=== PATIENT | female | born 1960 | race Caucasian/White ===

== ENCOUNTER 2017-08-22 17:29 | Emergency (ER) | payer OTHER ==
[~2017-08-22] VITALS: Ht 167.6 cm; Wt 65.0 kg
[~2017-08-22 17:29] MED LIST: IBUP-232 PO
[2017-08-22 17:30] VITALS: BP 130/65; PULSE 71; RESP 16; TEMP 98.9; O2SAT 98
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
== END 2017-08-22 21:14 | disposition home or self-care (01) ==
LOC: NEPE 17:29
DX: T85.49XA Other mechanical complication of breast prosthesis and implant, initial encounter (principal); M32.9 Systemic lupus erythematosus, unspecified; J44.9 Chronic obstructive pulmonary disease, unspecified; F41.9 Anxiety disorder, unspecified; E78.00 Pure hypercholesterolemia, unspecified; R56.9 Unspecified convulsions; N19 Unspecified kidney failure; Z88.2 Allergy status to sulfonamides; Z88.8 Allergy status to other drugs, medicaments and biological substances
CPT/HCPCS: 99281

== ENCOUNTER 2017-09-24 22:13 | Emergency (ER) | payer OTHER ==
[~2017-09-24] VITALS: Ht 167.6 cm; Wt 75.0 kg
[2017-09-24 22:14] VITALS: PULSE 82; RESP 22; TEMP 98.2; O2SAT 98
[2017-09-24 22:33] VITALS: BP 133/70; PULSE 99; RESP 18; O2SAT 96
[2017-09-24] MEDS ORDERED: AMOX875T2 PO (22:47)
[2017-09-24] MEDS ORDERED: CITA10TA4 PO (22:47)
[2017-09-24] MEDS ORDERED: GABA300C5 PO (22:47)
[2017-09-24] MEDS ORDERED: OMEP20TA93 PO (22:47)
[2017-09-24] MEDS ORDERED: LITH300T3 PO (22:47)
[2017-09-24] MEDS ORDERED: OLAN15TA PO (22:47)
[2017-09-24] MEDS ORDERED: BUSP10TA PO (22:47)
[2017-09-24] MEDS ORDERED: TRAZ50TA12 PO (22:47)
[2017-09-24 23:13] LABS: AUTOMATED NEUTROPHIL # 4.4 TH/MM3 (1.8-7.7); BASOPHIL # 0.1 TH/MM3 (0-0.2); BASOPHIL % 1.2 % (0.0-2.0); EOSINOPHIL # 0.2 TH/MM3 (0-0.4); EOSINOPHIL % 1.7 % (0.0-4.0); HEMATOCRIT 39.6 % (35.0-46.0); HEMOGLOBIN 13.4 GM/DL (11.6-15.3); LYMPH % 40.2 % (9.0-44.0); LYMPHOCYTE # 3.7 TH/MM3 (1.0-4.8); MEAN CORPUSCULAR HEMOGLOBIN 35.2 PG (27.0-34.0); MEAN CORPUSCULAR HGB CONC 33.9 % (32.0-36.0); MEAN PLATELET VOLUME 8.5 FL (7.0-11.0); MONO % 8.3 % (0.0-8.0); MONOCYTE # 0.8 TH/MM3 (0-0.9); NEUT % 48.6 % (16.0-70.0); PLATELET COUNT 175 TH/MM3 (150-450); RED BLOOD COUNT 3.81 MIL/MM3 (4.00-5.30); RED CELL DISTRIBUTION WIDTH 14.6 % (11.6-17.2); WHITE BLOOD COUNT 9.1 TH/MM3 (4.0-11.0)
--- NOTE | 2017-09-24 23:21 | PD ---
HPI Chief Complaint: Respiratory Symptoms Time Seen by Provider: 22:37 Travel History International Travel<30 days: No Contact w/Intl Traveler<30days: No Traveled to known affect area: No History of Present Illness HPI 56 old woman presents emergent heart complaining worsening shortness of breath with cough congestion symptoms ongoing for the past week. Straight tobacco use , trying to quit, last smoked today, treated with antibiotic steroids and bronchodilators without significant improvement. She is also treated for shortness of breath symptoms value with Valium, but she states she is currently out. No fevers. No other complaints. History Past Medical History Menopausal: Yes : 7 Para: 1 Social History Alcohol Use: No Tobacco Use: Yes Allergies-Medications (Allergen,Severity, Reaction): Coded Allergies: sulfamethoxazole (Unverified Allergy, Severe, Anaphylaxis, 09/24/17) trimethoprim (Unverified Allergy, Severe, Anaphylaxis, 09/24/17) Reported Meds & Prescriptions Reported Meds & Active Scripts Active Reported Gabapentin 300 Mg Cap 300 Mg PO BID Trazodone (Trazodone HCl) 50 Mg Tab 50 Mg PO HS Buspirone (Buspirone HCl) 10 Mg Tab 10 Mg PO DAILY [place] Carbonate 300 Mg Tab 300 Mg PO BID Omeprazole 20 Mg Tab 20 Mg PO DAILY Citalopram (Citalopram Hydrobromide) 10 Mg Tab 10 Mg PO DAILY Olanzapine 15 Mg Tab 15 Mg PO HS Amoxicillin-Clavulanate 875-125 mg Tab 875 Mg PO BID not for use in CrCl <30 mL/minute Review of Systems Except as stated in HPI: all other systems reviewed are Neg Physical Exam Narrative GENERAL: Well-appearing 56 year-old woman, no acute distress. SKIN: Focused skin assessment warm/dry. EYES: Pupils equal and round. No scleral icterus. No injection or drainage. ENT: No nasal bleeding or discharge. Mucous membranes pink and moist. TMs normal. Throat is normal. NECK: Trachea midline. Slight anterior cervical adenopathy. CARDIOVASCULAR: Regular rate and rhythm. No murmur appreciated. RESPIRATORY: No accessory muscle use. Clear to auscultation. Breath sounds equal bilaterally. GASTROINTESTINAL: Abdomen soft, non-tender, nondistended. Hepatic and splenic margins not palpable. MUSCULOSKELETAL: No obvious deformities. No edema. NEUROLOGICAL: Awake and alert. No obvious cranial nerve deficits. Motor grossly within normal limits. Normal speech. Data Data Last Documented VS Vital Signs Date Time Temp Pulse Resp B/P (MAP) Pulse Ox O2 Delivery O2 Flow Rate FiO2 09/24/17 22:33 99 18 133/70 (91) 96 Room Air 09/24/17 22:14 98.2 Orders Orders Chest, Pa & Lat (09/24/17 ) Complete Blood Count With Diff (09/24/17 22:58) Comprehensive Metabolic Panel (09/24/17 22:58) D-Dimer (09/24/17 22:58) Labs Laboratory Tests Test 09/24/17 23:05 White Blood Count 9.1 TH/MM3 Red Blood Count 3.81 MIL/MM3 Hemoglobin 13.4 GM/DL Hematocrit 39.6 % Mean Corpuscular Volume 104.0 FL Mean Corpuscular Hemoglobin 35.2 PG Mean Corpuscular Hemoglobin Concent 33.9 % Red Cell Distribution Width 14.6 % Platelet Count 175 TH/MM3 Mean Platelet Volume 8.5 FL Neutrophils (%) (Auto) 48.6 % Lymphocytes (%) (Auto) 40.2 % Monocytes (%) (Auto) 8.3 % Eosinophils (%) (Auto) 1.7 % Basophils (%) (Auto) 1.2 % Neutrophils # (Auto) 4.4 TH/MM3 Lymphocytes # (Auto) 3.7 TH/MM3 Monocytes # (Auto) 0.8 TH/MM3 Eosinophils # (Auto) 0.2 TH/MM3 Basophils # (Auto) 0.1 TH/MM3 CBC Comment DIFF FINAL Differential Comment D-Dimer Quantitative (PE/DVT) 0.27 MG/L FEU Blood Urea Nitrogen 20 MG/DL Creatinine 0.86 MG/DL Random Glucose 105 MG/DL Total Protein 7.2 GM/DL Albumin 3.0 GM/DL Calcium Level 8.6 MG/DL Alkaline Phosphatase 93 U/L Aspartate Amino Transf (AST/SGOT) 45 U/L Alanine Aminotransferase (ALT/SGPT) 63 U/L Total Bilirubin 0.3 MG/DL Sodium Level 140 MEQ/L Potassium Level 3.9 MEQ/L Chloride Level 106 MEQ/L Carbon Dioxide Level 25.4 MEQ/L Anion Gap 9 MEQ/L Estimat Glomerular Filtration Rate 69 ML/MIN MDM Medical Decision Making Medical Screen Exam Complete: Yes Emergency Medical Condition: Yes Interpretation(s) CBC unremarkable. D-dimer negative Chemistries mildly elevated AST and ALT. Chest x-ray negative. Differential Diagnosis Bronchitis, viral syndrome, URI, PE, anxiety, other Narrative Course Medical decision making INITIAL 56 old woman presents emergent department complaining of shortness of breath symptoms. She looks well. My impression is is probably URI symptoms and anxiety together. I don't hear much wheezing. Pulmonary exam is otherwise unremarkable. She is no significant edema in her legs. We'll check x-ray, basic labs, d-dimer. Diagnosis Primary Impression: URI (upper respiratory infection) Additional Instructions: Follow-up with your primary doctor in the next 2-4 days. Return to the emergency department for any new or worsening symptoms. Med/Other Pt SpecificInfo: No Change to Meds Disposition: 01 DISCHARGE HOME Condition: Stable Khoi Acharya MD Sep 24, 2017 23:21
--- NOTE | 2017-09-24 23:23 | RADRPT ---
EXAM DATE/TIME: 09/24/2017 23:09 [facility] COMPARISON: CHEST PA & LAT, March 20, 2010, 18:04. INDICATIONS : Shortness of breath for several weeks. MEDICAL HISTORY : None. SURGICAL HISTORY : None. ENCOUNTER: Initial ACUITY: 1 month PAIN SCORE: 0/10 LOCATION: Bilateral chest FINDINGS: The lungs are clear without infiltrate, nodule, or mass. There is no appreciable pleural effusion fo r technique. Heart and mediastinum are unremarkable. CONCLUSION: No acute cardiopulmonary disease. Rodrigo Jimenez MD on September 24, 2017 at 23:22 Board Certified Radiologist. This report was verified electronically.
[2017-09-24 23:27] LABS: ALT (GPT) 63 U/L (10-53)
[2017-09-24 23:30] LABS: ALKALINE PHOSPHATASE 93 U/L (45-117); TOTAL BILIRUBIN ADULT 0.3 MG/DL (0.2-1.0); TOTAL PROTEIN 7.2 GM/DL (6.4-8.2)
[2017-09-24 23:34] LABS: AST (GOT) 45 U/L (15-37); BICARBONATE 25.4 MEQ/L (21.0-32.0); BLOOD UREA NITROGEN 20 MG/DL (7-18); CALCIUM 8.6 MG/DL (8.5-10.1); CHLORIDE 106 MEQ/L (98-107); CREATININE 0.86 MG/DL (0.50-1.00); GLOMERULAR FILTRATION RATE 69 ML/MIN (>89); GLUCOSE,RANDOM 105 MG/DL (74-106); SODIUM (NA) 140 MEQ/L (136-145)
== END 2017-09-25 00:04 | disposition home or self-care (01) ==
LOC: NEPE 22:13
DX: J06.9 Acute upper respiratory infection, unspecified (principal); Z72.0 Tobacco use
CPT/HCPCS: 71020; 80053; 85025; 85379; 99284

== ENCOUNTER 2017-09-27 14:44 | Emergency (ER) | payer OTHER ==
[~2017-09-27 14:44] MED LIST changes: +AMOX875T2 PO; +BUSP10TA PO; +CITA10TA4 PO; +GABA300C5 PO; -IBUP-232 PO; +LITH300T3 PO; +OLAN15TA PO; +OMEP20TA93 PO; +TRAZ50TA12 PO
[2017-09-27 14:45] VITALS: BP 142/75; PULSE 91; RESP 28; TEMP 98.2; O2SAT 97
[2017-09-27] MEDS ORDERED: RESP: ALBUTEROL 2.5 MG/3 ML NEB (SCH) INH (15:45)
[2017-09-27] MEDS ORDERED: RESP: ALBUTEROL 2.5 MG/IPRATROPIUM 0.5 MG NEB (SCH) INH ONE (15:45)
[2017-09-27] MEDS ORDERED: SODIUM CHLORIDE 0.9% FLUSH 10 ML FLUSH IVF PRN (15:45)
--- NOTE | 2017-09-27 16:06 | RADRPT ---
EXAM DATE/TIME: 09/27/2017 15:53 [facility] COMPARISON: CHEST PA & LAT, September 24, 2017, 23:09. INDICATIONS : Short of breath. MEDICAL HISTORY : None. SURGICAL HISTORY : None. ENCOUNTER: Initial ACUITY: 1 day PAIN SCORE: 0/10 LOCATION: Bilateral chest FINDINGS: A single view of the chest demonstrates the lungs to be symmetrically aerated without evidence of mas s, infiltrate or effusion. The cardiomediastinal contours are unremarkable. Osseous structures are intact. CONCLUSION: No acute disease. Mckinley Alarcon MD on September 27, 2017 at 16:03 Board Certified Radiologist. This report was verified electronically.
[2017-09-27] MEDS ORDERED: ALPR0.5T3 PO (16:10)
[2017-09-27 16:14] VITALS: RESP 20; O2SAT 97
--- NOTE | 2017-09-27 16:27 | PD ---
HPI Chief Complaint: Respiratory Symptoms Time Seen by Provider: 15:45 Travel History International Travel<30 days: No Contact w/Intl Traveler<30days: No Traveled to known affect area: No History of Present Illness HPI This is a 56-year-old female with history of COPD, who presents today with complaints of wheezing and shortness of breath. The patient states she was recently put on a low dose steroid taper however the wheezing has continued. She denies any fevers, chills. Denies any productive cough. She reports dyspnea on exertion. There is no chest pain or chest pressure that time my examination. There are no other complaints at the time of my examination. 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 ) Headaches: Yes Hepatitis: No Hiatal Hernia: No Heparin Induced Thrombocytopen: No Immune Disorder: Yes (LUPUS) Inguinal Hernia: Yes Kidney Stones: No Musculoskeletal: Yes (LUPUS;) Neurologic: No Psychiatric: No Reproductive: No Respiratory: Yes Immunizations Current: No Migraines: Yes Myocardial Infarction: No Renal Failure: Yes Seizures: Yes Sickle Cell Disease: No Sleep Apnea: No Thyroid Disease: No Ulcer: No Tetanus Vaccination: > 5 Years Influenza Vaccination: No ?: Not Menopausal: Yes : 7 Para: 1 Miscarriage: 6 : 0 Ectopic : Yes (X 6) Ovarian Cysts: Yes (OVARIES REMOVED) Tubal Ligation: Yes Past Surgical History Abdominal Surgery: Yes (LT INGUINAL HERNIA 1980) AICD: No Body Medical Devices: BLOOD CLOTS, AND LUPUS Cardiac Surgery: No Cholecystectomy: Yes Coronary Artery Bypass Graft: No Ear Surgery: No Endocrine Surgery: Yes (LEFT KIDNEY) Eye Surgery: No Genitourinary Surgery: No Gynecologic Surgery: Yes (OOPHORECTOMY) Hysterectomy: Yes Insulin Pump: Yes Neurologic Surgery: No Oral Surgery: No Pacemaker: No Thoracic Surgery: No Other Surgery: Yes (PT REFUSES TO DISCLOSE SX HX.) Social History Alcohol Use: No Tobacco Use: Yes Substance Use: Yes (PAST HX OF NARCOTIC DRUG ABUSE) Allergies-Medications (Allergen,Severity, Reaction): Coded Allergies: sulfamethoxazole (Unverified Allergy, Severe, Anaphylaxis, 09/27/17) trimethoprim (Unverified Allergy, Severe, Anaphylaxis, 09/27/17) Reported Meds & Prescriptions Reported Meds & Active Scripts Active Reported Alprazolam 0.5 Mg Tab 0.5 Mg PO BID PRN Gabapentin 300 Mg Cap 300 Mg PO BID Trazodone (Trazodone HCl) 50 Mg Tab 50 Mg PO HS Buspirone (Buspirone HCl) 10 Mg Tab 10 Mg PO DAILY [place] Carbonate 300 Mg Tab 300 Mg PO BID Omeprazole 20 Mg Tab 20 Mg PO DAILY Citalopram (Citalopram Hydrobromide) 10 Mg Tab 10 Mg PO DAILY Olanzapine 15 Mg Tab 15 Mg PO HS Review of Systems Except as stated in HPI: all other systems reviewed are Neg General / Constitutional: No: Fever, Chills HENT: No: Headaches, Neck Pain Cardiovascular: No: Chest Pain or Discomfort, Palpitations Respiratory: Positive: Cough (nonproductive), Shortness of Breath, Wheezing Gastrointestinal: No: Nausea, Vomiting, Abdominal Pain Genitourinary: No: Frequency, Dysuria Musculoskeletal: No: Weakness, Pain Neurologic: No: Weakness, Dizziness, Headache Physical Exam Narrative GENERAL: Developed well-nourished female in no acute respiratory distress. SKIN: Focused skin assessment warm/dry. HEAD: Atraumatic. Normocephalic. EYES: Pupils equal and round. No scleral icterus. No injection or drainage. ENT: No nasal bleeding or discharge. Mucous membranes pink and moist. NECK: Trachea midline. Supple. CARDIOVASCULAR: Regular rate and rhythm. No murmur appreciated. RESPIRATORY: Diffuse expiratory wheezes. No Rales appreciated. GASTROINTESTINAL: Abdomen soft, non-tender, nondistended. Hepatic and splenic margins not palpable. MUSCULOSKELETAL: No obvious deformities. No clubbing. No cyanosis. No edema. NEUROLOGICAL: Awake and alert. No obvious cranial nerve deficits. Motor grossly within normal limits. Normal speech. Data Data Last Documented VS Vital Signs Date Time Temp Pulse Resp B/P (MAP) Pulse Ox O2 Delivery O2 Flow Rate FiO2 09/27/17 17:39 90 25 125/92 (103) 96 Room Air 09/27/17 14:45 98.2 Orders Orders Basic Metabolic Panel (Bmp) (09/27/17 15:45) B-Type Natriuretic Peptide (09/27/17 15:45) Ckmb (Isoenzyme) Profile (09/27/17 15:45) Complete Blood Count With Diff (09/27/17 15:45) Magnesium (Mg) (09/27/17 15:45) Prothrombin Time / Inr (Pt) (09/27/17 15:45) Act Partial Throm Time (Ptt) (09/27/17 15:45) Troponin I (09/27/17 15:45) Chest, Single Ap (09/27/17 15:45) Ecg Monitoring (09/27/17 15:45) Bilateral Bp Monitoring (09/27/17 15:45) Iv Access Insert/Monitor (09/27/17 15:45) Oximetry (09/27/17 15:45) Oxygen Administration (09/27/17 15:45) Sodium Chloride 0.9% Flush (Ns Flush) (09/27/17 15:45) Albuterol-Ipratropium Neb (Duoneb Neb) (09/27/17 15:45) Albuterol Neb (Albuterol Neb) (09/27/17 15:45) Arterial Blood Gas (Abg) (09/27/17 15:45) Electrocardiogram (09/27/17 15:08) Labs Laboratory Tests Test 09/27/17 16:00 White Blood Count 7.9 TH/MM3 Red Blood Count 4.07 MIL/MM3 Hemoglobin 14.2 GM/DL Hematocrit 42.6 % Mean Corpuscular Volume 104.6 FL Mean Corpuscular Hemoglobin 34.8 PG Mean Corpuscular Hemoglobin Concent 33.3 % Red Cell Distribution Width 14.4 % Platelet Count 180 TH/MM3 Mean Platelet Volume 8.6 FL Neutrophils (%) (Auto) 59.6 % Lymphocytes (%) (Auto) 30.1 % Monocytes (%) (Auto) 8.1 % Eosinophils (%) (Auto) 1.4 % Basophils (%) (Auto) 0.8 % Neutrophils # (Auto) 4.7 TH/MM3 Lymphocytes # (Auto) 2.4 TH/MM3 Monocytes # (Auto) 0.6 TH/MM3 Eosinophils # (Auto) 0.1 TH/MM3 Basophils # (Auto) 0.1 TH/MM3 CBC Comment DIFF FINAL Differential Comment Prothrombin Time 10.5 SEC Prothromb Time International Ratio 1.0 RATIO Activated Partial Thromboplast Time 25.7 SEC Blood Urea Nitrogen 15 MG/DL Creatinine 0.77 MG/DL Random Glucose 86 MG/DL Calcium Level 8.7 MG/DL Magnesium Level 2.0 MG/DL Sodium Level 145 MEQ/L Potassium Level 4.2 MEQ/L Chloride Level 111 MEQ/L Carbon Dioxide Level 28.4 MEQ/L Anion Gap 6 MEQ/L Estimat Glomerular Filtration Rate 78 ML/MIN Total Creatine Kinase 73 U/L Troponin I LESS THAN 0.02 NG/ML B-Type Natriuretic Peptide 19 PG/ML MDM Medical Decision Making Medical Screen Exam Complete: Yes Emergency Medical Condition: Yes Differential Diagnosis COPD exacerbation versus pneumonia versus bronchitis versus pulmonary embolus Narrative Course 86-year-old female history of reactive airway disease/COPD, presents here with shortness of breath. Patient had been treated previously with steroids however states that they only last a short period time and she is now short of breath again. She denies any chest pain, chest pressure. She's been given nebulizer treatments and had a blood gas done. We are awaiting laboratory tests. The patient has decided to sign out AGAINST MEDICAL ADVICE before workup was completed. She is made aware of the risks of leaving before workup complete. She understands this and stated that she did not want to wait any longer. She was told she can come back any time. She's also instructed to stop smoking. AMA: The risks of leaving against medical advice without further evaluation treatment were discussed with the patient. These risks include cardiac dysfunction, cardiac dysrhythmia, possible heart attack, possible stroke or . The patient indicated understanding of these risks and appeared to have the capacity to make this decision. Diagnosis Primary Impression: Shortness of breath Additional Impression: History of COPD Disposition: AGAINST MEDICAL ADVICE Condition: Stable Giancarlo Marti MD Sep 27, 2017 16:27
[2017-09-27 16:29] LABS: AUTOMATED NEUTROPHIL # 4.7 TH/MM3 (1.8-7.7); BASOPHIL # 0.1 TH/MM3 (0-0.2); BASOPHIL % 0.8 % (0.0-2.0); EOSINOPHIL # 0.1 TH/MM3 (0-0.4); EOSINOPHIL % 1.4 % (0.0-4.0); HEMATOCRIT 42.6 % (35.0-46.0); HEMOGLOBIN 14.2 GM/DL (11.6-15.3); LYMPH % 30.1 % (9.0-44.0); LYMPHOCYTE # 2.4 TH/MM3 (1.0-4.8); MEAN CELL VOLUME 104.6 FL (80.0-100.0); MEAN CORPUSCULAR HEMOGLOBIN 34.8 PG (27.0-34.0); MEAN CORPUSCULAR HGB CONC 33.3 % (32.0-36.0); MEAN PLATELET VOLUME 8.6 FL (7.0-11.0); MONO % 8.1 % (0.0-8.0); MONOCYTE # 0.6 TH/MM3 (0-0.9); NEUT % 59.6 % (16.0-70.0); PLATELET COUNT 180 TH/MM3 (150-450); RED BLOOD COUNT 4.07 MIL/MM3 (4.00-5.30); RED CELL DISTRIBUTION WIDTH 14.4 % (11.6-17.2); WHITE BLOOD COUNT 7.9 TH/MM3 (4.0-11.0)
[2017-09-27 16:50] LABS: PROTHROMBIN TIME - PATIENT 10.5 SEC (9.8-11.6)
[2017-09-27 16:52] LABS: BICARBONATE 28.4 MEQ/L (21.0-32.0); BLOOD UREA NITROGEN 15 MG/DL (7-18); CALCIUM 8.7 MG/DL (8.5-10.1); CHLORIDE 111 MEQ/L (98-107); CREATININE 0.77 MG/DL (0.50-1.00); GLOMERULAR FILTRATION RATE 78 ML/MIN (>89); GLUCOSE,RANDOM 86 MG/DL (74-106); SODIUM (NA) 145 MEQ/L (136-145)
[2017-09-27 16:55] LABS: TROPONIN I LESS THAN 0.02 NG/ML (0.02-0.05)
[2017-09-27 17:39] VITALS: BP 125/92; PULSE 90; RESP 25; O2SAT 96
[2017-09-27 18:51] VITALS: BP 111/86; PULSE 100; RESP 32; TEMP 98.1; O2SAT 95
--- NOTE | 2017-09-28 23:19 | EKG ---
Date Performed: 09/27/2017 Time Performed: 15:08:33 PTAGE: 56 years EKG: Sinus rhythm WITH OCCASIONAL SUPRAVENTRICULAR PREMATURE COMPLEXES SEPTAL MYOCARDIAL INFARCTION ABNORMAL ECG PREVIOUS TRACING : 12/19/2009 23.09 Compared to prior tracing no significant change DOCTOR: Teja Garcia Interpretating Date/Time 09/28/2017 23:17:37
== END 2017-09-27 19:01 | disposition left against medical advice (07) ==
LOC: NEPC 14:44
DX: R06.02 Shortness of breath (principal); J44.9 Chronic obstructive pulmonary disease, unspecified; M32.9 Systemic lupus erythematosus, unspecified; Z72.0 Tobacco use; Z79.899 Other long term (current) drug therapy
CPT/HCPCS: 71010; 80048; 82550; 83735; 83880; 84484; 85025; 85610; 85730; 93005; 94664; 99285

== ENCOUNTER 2017-09-29 19:13 | Emergency (ER) | payer OTHER ==
[~2017-09-29 19:13] MED LIST changes: +ALPR0.5T3 PO; -AMOX875T2 PO
[2017-09-29 19:14] VITALS: BP 157/70; PULSE 109; RESP 19; TEMP 98.8; O2SAT 94
--- NOTE | 2017-09-29 19:54 | PD ---
HPI Chief Complaint: Respiratory Symptoms Time Seen by Provider: 19:35 Travel History International Travel<30 days: No Contact w/Intl Traveler<30days: No Traveled to known affect area: No History of Present Illness HPI 56-year-old female with a history of COPD presents to emergency department complaining of shortness of breath for 2 weeks. States she has used prednisone and antibiotics as prescribed but is not improving. States she also has some left-sided, nonradiating, axillary chest wall pain that has been persistent as well. States the pain is mild, increases with movement and palpation. She says she was here a few days ago and was referred to cardiology per she has not followed up yet. Denies nausea, vomiting or diarrhea. She also states that her right arm started hurting upon arrival of the emergency department. Denies trauma or inciting events. Patient denies recent travel, immobilizations, surgeries, fractures. Patient denies significant family history of cardiac or pulmonary issues. Denies history of diabetes, previous IN, hyperlipidemia or hypertension. Mother of a heart attack at the age 59. 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 ) Headaches: Yes Hepatitis: No Hiatal Hernia: No Heparin Induced Thrombocytopen: No Immune Disorder: Yes (LUPUS) Inguinal Hernia: Yes Kidney Stones: No Musculoskeletal: Yes Neurologic: No Psychiatric: No Reproductive: No Respiratory: Yes Immunizations Current: No Migraines: Yes Myocardial Infarction: No Renal Failure: Yes Seizures: Yes Sickle Cell Disease: No Sleep Apnea: No Thyroid Disease: No Ulcer: No ?: Not Menopausal: Yes : 7 Para: 1 Miscarriage: 6 : 0 Ectopic : Yes (X 6) Ovarian Cysts: Yes (OVARIES REMOVED) Tubal Ligation: Yes Past Surgical History Abdominal Surgery: Yes (LT INGUINAL HERNIA 1980) AICD: No Body Medical Devices: BLOOD CLOTS, AND LUPUS Cardiac Surgery: No Cholecystectomy: Yes Coronary Artery Bypass Graft: No Ear Surgery: No Endocrine Surgery: Yes (LEFT KIDNEY) Eye Surgery: No Genitourinary Surgery: No Gynecologic Surgery: Yes (OOPHORECTOMY) Hysterectomy: Yes Insulin Pump: Yes Neurologic Surgery: No Oral Surgery: No Pacemaker: No Thoracic Surgery: No Other Surgery: Yes Social History Alcohol Use: No Tobacco Use: Yes Substance Use: Yes (PAST HX OF NARCOTIC DRUG ABUSE) Allergies-Medications (Allergen,Severity, Reaction): Coded Allergies: sulfamethoxazole (Unverified Allergy, Severe, Anaphylaxis, 09/29/17) trimethoprim (Unverified Allergy, Severe, Anaphylaxis, 09/29/17) Reported Meds & Prescriptions Reported Meds & Active Scripts Active Vistaril (Hydroxyzine Pamoate) 50 Mg Cap 50 Mg PO QID PRN Proventil Hfa 6.7 GM Inh (Albuterol Sulfate) 90 Mcg/Act Aer 2 Puff INH Q4-6H PRN Reported Alprazolam 0.5 Mg Tab 0.5 Mg PO BID PRN Gabapentin 300 Mg Cap 300 Mg PO BID Trazodone (Trazodone HCl) 50 Mg Tab 50 Mg PO HS Buspirone (Buspirone HCl) 10 Mg Tab 10 Mg PO DAILY Paguate Carbonate 300 Mg Tab 300 Mg PO BID Omeprazole 20 Mg Tab 20 Mg PO DAILY Citalopram (Citalopram Hydrobromide) 10 Mg Tab 10 Mg PO DAILY Olanzapine 15 Mg Tab 15 Mg PO HS Review of Systems Except as stated in HPI: all other systems reviewed are Neg Physical Exam Narrative GENERAL: Well-developed well-nourished in distress, hair and makeup done, well- dressed SKIN: Focused skin assessment warm/dry. HEAD: Atraumatic. Normocephalic. EYES: Pupils equal and round. No scleral icterus. No injection or drainage. ENT: No nasal bleeding or discharge. Mucous membranes pink and moist. NECK: Trachea midline. No JVD. CARDIOVASCULAR: Regular rate and rhythm. No murmur appreciated. RESPIRATORY: No accessory muscle use. Clear to auscultation. Breath sounds equal bilaterally. GASTROINTESTINAL: Abdomen soft, non-tender, nondistended. Hepatic and splenic margins not palpable. MUSCULOSKELETAL: No obvious deformities. No clubbing. No cyanosis. No edema. NEUROLOGICAL: Awake and alert. No obvious cranial nerve deficits. Motor grossly within normal limits. Normal speech. PSYCHIATRIC: Appropriate mood and affect; insight and judgment normal. Data Data Last Documented VS Vital Signs Date Time Temp Pulse Resp B/P (MAP) Pulse Ox O2 Delivery O2 Flow Rate FiO2 09/29/17 21:31 09/29/17 20:35 97 Room Air 09/29/17 20:35 104 22 09/29/17 19:14 98.8 Orders Orders Complete Blood Count With Diff (09/29/17 19:54) Basic Metabolic Panel (Bmp) (09/29/17 19:54) D-Dimer (09/29/17 19:54) Magnesium (Mg) (09/29/17 19:54) Ckmb (Isoenzyme) Profile (09/29/17 19:54) Troponin I (09/29/17 19:54) Electrocardiogram (09/29/17 19:54) Ecg Monitoring (09/29/17 19:54) Oximetry (09/29/17 19:54) Sodium Chlorid 0.9% 500 Ml Inj (Ns 500 M (09/29/17 20:00) Iv Access Insert/Monitor (09/29/17 19:54) Oxygen Administration (09/29/17 19:54) Sodium Chloride 0.9% Flush (Ns Flush) (09/29/17 20:00) Albuterol-Ipratropium Neb (Duoneb Neb) (09/29/17 20:00) Ed Discharge Order (09/29/17 21:24) Labs Laboratory Tests Test 09/29/17 20:30 White Blood Count 7.6 TH/MM3 Red Blood Count 3.82 MIL/MM3 Hemoglobin 13.5 GM/DL Hematocrit 40.0 % Mean Corpuscular Volume 104.7 FL Mean Corpuscular Hemoglobin 35.4 PG Mean Corpuscular Hemoglobin Concent 33.8 % Red Cell Distribution Width 14.5 % Platelet Count 157 TH/MM3 Mean Platelet Volume 8.6 FL Neutrophils (%) (Auto) 55.8 % Lymphocytes (%) (Auto) 32.7 % Monocytes (%) (Auto) 8.9 % Eosinophils (%) (Auto) 1.6 % Basophils (%) (Auto) 1.0 % Neutrophils # (Auto) 4.3 TH/MM3 Lymphocytes # (Auto) 2.5 TH/MM3 Monocytes # (Auto) 0.7 TH/MM3 Eosinophils # (Auto) 0.1 TH/MM3 Basophils # (Auto) 0.1 TH/MM3 CBC Comment DIFF FINAL Differential Comment D-Dimer Quantitative (PE/DVT) 0.24 MG/L FEU Blood Urea Nitrogen 14 MG/DL Creatinine 0.78 MG/DL Random Glucose 122 MG/DL Calcium Level 8.6 MG/DL Magnesium Level 1.8 MG/DL Sodium Level 140 MEQ/L Potassium Level 3.8 MEQ/L Chloride Level 108 MEQ/L Carbon Dioxide Level 23.8 MEQ/L Anion Gap 8 MEQ/L Estimat Glomerular Filtration Rate 77 ML/MIN Total Creatine Kinase 93 U/L Troponin I LESS THAN 0.02 NG/ML MDM Medical Decision Making Medical Screen Exam Complete: Yes Emergency Medical Condition: Yes Differential Diagnosis STEMI, NSTEMI, COPD exacerbation, malingering Narrative Course 56-year-old female with a history of COPD presents to emergency department complaining of shortness of breath for 2 weeks. States she has used prednisone and antibiotics as prescribed but is not improving. States she also has some left-sided, nonradiating, axillary chest wall pain that has been persistent as well. States the pain is mild, increases with movement and palpation. She says she was here a few days ago and was referred to cardiology per she has not followed up yet. Denies nausea, vomiting or diarrhea. She also states that her right arm started hurting upon arrival of the emergency department. Denies trauma or inciting events. Patient denies recent travel, immobilizations, surgeries, fractures. Patient denies significant family history of cardiac or pulmonary issues. Denies history of diabetes, previous IN, hyperlipidemia or hypertension. Mother of a heart attack at the age 59. Vital signs- mild tachycardia Upon initial evaluation and interview, patient stated that she is here because she has an abnormal EKG. She said that her doctor told her to come here. When I asked her what this was she said "I don't know". Question this patient's history at this time. Chest xray not ordered today. No adventitious lung sounds, CXR from 09/27 and unremarkable. Stress test in 2008 with a low probability of defects. I have a low suspicion of an acute process going on with her however, labs were ordered to rule out acute cardiac involvement. Labs and imaging studies pending as of transfer of care to [facility]. Scripts Hydroxyzine Pamoate (Vistaril) 50 Mg Cap 50 MG PO QID Y for ANXIETY, #20 CAP 0 Refills Prov: Eric Almaguer MD 09/29/17 Albuterol 6.7 GM Inh (Proventil Hfa 6.7 GM Inh) 90 Mcg/Act Aer 2 PUFF INH Q4-6H Y for SHORTNESS OF BREATH, #1 INHALER 0 Refills Prov: Eric Almaguer MD 09/29/17 Disposition: 01 DISCHARGE HOME Condition: Stable Megan Nash Sep 29, 2017 19:54
[2017-09-29] MEDS ORDERED: SODIUM CHLORID 0.9% 500 ML INJ 500 ML IV ONE (20:00)
[2017-09-29] MEDS ORDERED: SODIUM CHLORIDE 0.9% FLUSH 10 ML FLUSH IVF PRN (20:00)
[2017-09-29] MEDS ORDERED: RESP: ALBUTEROL 2.5 MG/IPRATROPIUM 0.5 MG NEB (SCH) NEB ONE (20:00)
[2017-09-29 20:35] VITALS: PULSE 104; RESP 22; O2SAT 96
[2017-09-29 20:41] LABS: AUTOMATED NEUTROPHIL # 4.3 TH/MM3 (1.8-7.7); BASOPHIL # 0.1 TH/MM3 (0-0.2); EOSINOPHIL # 0.1 TH/MM3 (0-0.4); EOSINOPHIL % 1.6 % (0.0-4.0); HEMOGLOBIN 13.5 GM/DL (11.6-15.3); LYMPH % 32.7 % (9.0-44.0); LYMPHOCYTE # 2.5 TH/MM3 (1.0-4.8); MEAN CELL VOLUME 104.7 FL (80.0-100.0); MEAN CORPUSCULAR HEMOGLOBIN 35.4 PG (27.0-34.0); MEAN CORPUSCULAR HGB CONC 33.8 % (32.0-36.0); MEAN PLATELET VOLUME 8.6 FL (7.0-11.0); MONO % 8.9 % (0.0-8.0); MONOCYTE # 0.7 TH/MM3 (0-0.9); NEUT % 55.8 % (16.0-70.0); PLATELET COUNT 157 TH/MM3 (150-450); RED BLOOD COUNT 3.82 MIL/MM3 (4.00-5.30); RED CELL DISTRIBUTION WIDTH 14.5 % (11.6-17.2); WHITE BLOOD COUNT 7.6 TH/MM3 (4.0-11.0)
[2017-09-29 21:10] LABS: BICARBONATE 23.8 MEQ/L (21.0-32.0); BLOOD UREA NITROGEN 14 MG/DL (7-18); CALCIUM 8.6 MG/DL (8.5-10.1); CHLORIDE 108 MEQ/L (98-107); CREATININE 0.78 MG/DL (0.50-1.00); GLOMERULAR FILTRATION RATE 77 ML/MIN (>89); GLUCOSE,RANDOM 122 MG/DL (74-106); MAGNESIUM 1.8 MG/DL (1.5-2.5); SODIUM (NA) 140 MEQ/L (136-145); TROPONIN I LESS THAN 0.02 NG/ML (0.02-0.05)
[2017-09-29] MEDS ORDERED: ALBU6.7H INH (21:24)
[2017-09-29] MEDS ORDERED: VIST50CA PO (21:24)
--- NOTE | 2017-09-29 21:27 | PD ---
Physical Exam Date Seen by Provider: Sep 29, 2017 Time Seen by Provider: 21:25 Narrative GENERAL: This is a well-nourished, well-developed patient, in no apparent distress. SKIN: No rashes, ecchymoses or lesions. Warm and dry. HEAD: Atraumatic. Normocephalic. EYES: PERRL, EOMI, no discharge or injection. No scleral icterus. EARS: Clear NOSE: Nasal turbinates appear normal. THROAT: Mucosa pink and moist. Airway patent. NECK: Trachea midline. supple, moves head freely. LUNGS: Clear to auscultation. CV: Regular in rhythm. ABDOMEN: Soft nontender. EXT: No clubbing cyanosis or edema. Data Data Last Documented VS Vital Signs Date Time Temp Pulse Resp B/P (MAP) Pulse Ox O2 Delivery O2 Flow Rate FiO2 09/29/17 20:35 97 Room Air 09/29/17 20:35 104 22 09/29/17 19:14 98.8 Orders Orders Complete Blood Count With Diff (09/29/17 19:54) Basic Metabolic Panel (Bmp) (09/29/17 19:54) D-Dimer (09/29/17 19:54) Magnesium (Mg) (09/29/17 19:54) Ckmb (Isoenzyme) Profile (09/29/17 19:54) Troponin I (09/29/17 19:54) Electrocardiogram (09/29/17 19:54) Ecg Monitoring (09/29/17 19:54) Oximetry (09/29/17 19:54) Sodium Chlorid 0.9% 500 Ml Inj (Ns 500 M (09/29/17 20:00) Iv Access Insert/Monitor (09/29/17 19:54) Oxygen Administration (09/29/17 19:54) Sodium Chloride 0.9% Flush (Ns Flush) (09/29/17 20:00) Albuterol-Ipratropium Neb (Duoneb Neb) (09/29/17 20:00) Ed Discharge Order (09/29/17 21:24) Labs Laboratory Tests Test 09/29/17 20:30 White Blood Count 7.6 TH/MM3 Red Blood Count 3.82 MIL/MM3 Hemoglobin 13.5 GM/DL Hematocrit 40.0 % Mean Corpuscular Volume 104.7 FL Mean Corpuscular Hemoglobin 35.4 PG Mean Corpuscular Hemoglobin Concent 33.8 % Red Cell Distribution Width 14.5 % Platelet Count 157 TH/MM3 Mean Platelet Volume 8.6 FL Neutrophils (%) (Auto) 55.8 % Lymphocytes (%) (Auto) 32.7 % Monocytes (%) (Auto) 8.9 % Eosinophils (%) (Auto) 1.6 % Basophils (%) (Auto) 1.0 % Neutrophils # (Auto) 4.3 TH/MM3 Lymphocytes # (Auto) 2.5 TH/MM3 Monocytes # (Auto) 0.7 TH/MM3 Eosinophils # (Auto) 0.1 TH/MM3 Basophils # (Auto) 0.1 TH/MM3 CBC Comment DIFF FINAL Differential Comment D-Dimer Quantitative (PE/DVT) 0.24 MG/L FEU Blood Urea Nitrogen 14 MG/DL Creatinine 0.78 MG/DL Random Glucose 122 MG/DL Calcium Level 8.6 MG/DL Magnesium Level 1.8 MG/DL Sodium Level 140 MEQ/L Potassium Level 3.8 MEQ/L Chloride Level 108 MEQ/L Carbon Dioxide Level 23.8 MEQ/L Anion Gap 8 MEQ/L Estimat Glomerular Filtration Rate 77 ML/MIN Total Creatine Kinase 93 U/L Troponin I LESS THAN 0.02 NG/ML MDM Medical Record Reviewed: Yes Supervised Visit with SUNIL: No Differential Diagnosis MDM: High Differential diagnoses: Pneumonia, bronchitis, URI, asthma, RAD, legionnaire's disease, SARS, ARDS, influenza, bronchiolitis, RSV,PE,CHF, anxiety, Narrative Course The patient's exam here is unremarkable. I reviewed the patient's laboratory tests from today as well as her evaluation in the last 3 visits. Her d-dimer has been negative on multiple occasions. Chest x-ray is negative. Laboratory tests are unremarkable for any acute etiology of her complaints today. The patient has requested an inhaler as well as something for her anxiety. She'll be given a prescription for albuterol as well as Vistaril. She is strongly advised to follow-up with her doctor. She states that she sees Dr. Nguyen. She has verbally agreed to follow-up. Diagnosis Primary Impression: Dyspnea Qualified Codes: R06.00 - Dyspnea, unspecified Patient Instructions: General Instructions Additional Instruction: Rest. Medications as directed. Follow-up with Dr. Nguyen your doctor in the next few days. Return to the ER for emergencies. Med/Other Pt SpecificInfo: Prescription(s) given Scripts Hydroxyzine Pamoate (Vistaril) 50 Mg Cap 50 MG PO QID Y for ANXIETY, #20 CAP 0 Refills Prov: Eric Almaguer MD 09/29/17 Albuterol 6.7 GM Inh (Proventil Hfa 6.7 GM Inh) 90 Mcg/Act Aer 2 PUFF INH Q4-6H Y for SHORTNESS OF BREATH, #1 INHALER 0 Refills Prov: Eric Almaguer MD 09/29/17 Disposition: 01 DISCHARGE HOME Condition: Stable Harjeet Olmstead Sep 29, 2017 21:27
--- NOTE | 2017-10-01 12:46 | EKG ---
Date Performed: 09/29/2017 Time Performed: 20:34:50 PTAGE: 56 years EKG: SINUS TACHYCARDIA WITH SHORT NM INTERVAL NONSPECIFIC T-WAVE ABNORMALITY Compared to prior t racing no significant change ABNORMAL RHYTHM ECG NO PREVIOUS TRACING DOCTOR: Yohannes Herrera Interpretating Date/Time 10/01/2017 12:44:33
== END 2017-09-29 21:48 | disposition home or self-care (01) ==
LOC: NEPD 19:13
DX: R06.00 Dyspnea, unspecified (principal); R07.89 Other chest pain; R00.0 Tachycardia, unspecified; R94.31 Abnormal electrocardiogram [ECG] [EKG]; J44.9 Chronic obstructive pulmonary disease, unspecified; M32.9 Systemic lupus erythematosus, unspecified; F41.9 Anxiety disorder, unspecified; I25.2 Old myocardial infarction; N19 Unspecified kidney failure
CPT/HCPCS: 80048; 82550; 83735; 84484; 85025; 85379; 93005; 94664; 99284; J7040